=== PATIENT | female | born 1990 | race African-American/Black ===

== ENCOUNTER 2016-06-11 18:06 | Emergency (ER) | payer SELFPAY ==
[~2016-06-11] VITALS: Ht 170.2 cm; Wt 70.0 kg
[~2016-06-11 18:06] MED LIST: BACT800T5 PO; CEPH500C3 PO
[2016-06-11 18:10] VITALS: BP 131/82; PULSE 88; RESP 16; TEMP 98.2; O2SAT 96
--- NOTE | 2016-06-11 20:47 | PD ---
HPI Chief Complaint: Headache Time Seen by Provider: 20:38 Travel History International Travel<30 days: No Contact w/Intl Traveler<30days: No Traveled to known affect area: No History of Present Illness HPI This is a 25-year-old female who presents for evaluation of multiple complaints. She reports over the past several months she's been having intermittent lower back pain. Pain is a sharp pain that seems to be worse with certain movements. Over the past week she has been having occasional headaches , mild, as well as a sore throat over the past few days. She does endorse a cough as well. Denies fevers or chills, dysuria, flank pain, abdominal pain, nausea or vomiting, bowel or bladder incontinence, saddle anesthesia, numbness or tingling or weakness in the extremities. She denies any trauma. She notes that she works at a [employer] center, has to sit for most of the day. She has been using bucj-[id number] medications for symptom relief. She has no other complaints. History Past Medical Histgory LMP: 05/13/16 Social History Alcohol Use: No Tobacco Use: No Allergies-Medications (Allergen,Severity, Reaction): Coded Allergies: No Known Allergies (Verified , 07/15/14) Reported Meds & Prescriptions Reported Meds & Active Scripts Active Keflex (Cephalexin Monohydrate) 500 Mg Cap 500 Mg PO QID 10 Days Bactrim DS (Sulfamethoxazole-Trimethoprim DS) 1 Tab Tab 1 Tab PO BID 10 Days Review of Systems Except as stated in HPI: all other systems reviewed are Neg Physical Exam Narrative GENERAL: Well-developed well-nourished female in no acute distress SKIN: Warm and dry. HEAD: Atraumatic. Normocephalic. EYES: Pupils equal and round. No scleral icterus. No injection or drainage. ENT: No nasal bleeding or discharge. Mucous membranes pink and moist. No oral pharyngeal erythema or exudate. NECK: Trachea midline. No JVD. No lymphadenopathy. CARDIOVASCULAR: Regular rate and rhythm. No murmur appreciated. RESPIRATORY: No accessory muscle use. Clear to auscultation. Breath sounds equal bilaterally. GASTROINTESTINAL: Abdomen soft, non-tender, nondistended. MUSCULOSKELETAL: No obvious deformities. No CVA tenderness. No tenderness to palpation along the thoracic or lumbar midline spine. Full spontaneous range of motion of the upper and lower extremities, neck, no apparent discomfort when going from lying down to sitting. NEUROLOGICAL: Awake and alert. No obvious cranial nerve deficits. Motor grossly within normal limits. Normal speech. PSYCHIATRIC: Appropriate mood and affect; insight and judgment normal. Data Data Last Documented VS Vital Signs Date Time Temp Pulse Resp B/P Pulse Ox O2 Delivery O2 Flow Rate FiO2 06/11/16 18:10 98.2 88 16 131/82 96 Room Air MDM Medical Screen Exam Complete: Yes Emergency Medical Condition: No Narrative Course This is a 25-year-old female has been having intermittent lower back pain for several months, occasional mild headaches for the past week as well as a sore throat. Physical examination is entirely benign. I suspect the patient has a viral pharyngitis, benign mechanical lower back pain. This patient is exhibiting no evidence of an emergent medical condition and she could follow up safely as an outpatient. A medical screening exam was performed: At the time of evaluation the presenting medical condition was determined not to be of an emergent nature. The patient was given the option of receiving additional care, but declined. Patient was given options for additional community resources from which to obtain care. The Patient Has Been advised to seek medical attention for their presenting complaint. The patient has been advised to return to the ER at any time if an emergent condition develops. Primary Impression: Encounter for medical screening examination Med/Other Pt SpecificInfo: No Change to Meds Disposition: 01 DISCHARGE HOME Condition: Stable Ronn Ng Jun 11, 2016 20:47
== END 2016-06-11 20:55 | disposition left against medical advice (07) ==
LOC: NEPB 18:06
DX: M54.5 Low back pain (principal); R51 Headache; J02.9 Acute pharyngitis, unspecified
CPT/HCPCS: 99281

== ENCOUNTER 2016-12-31 18:59 | Emergency (ER) | payer MEDICAID ==
[2016-12-31 19:00] VITALS: BP 137/80; PULSE 72; RESP 20; TEMP 98.6; O2SAT 99
--- NOTE | 2016-12-31 19:27 | PD ---
Physical Exam Date Seen by Provider: Dec 31, 2016 Time Seen by Provider: 19:26 Narrative 26 yo female here for evaluation of pelvic pain with discharge. Going on for a few days. No chest pain. Vaginal discharge and pelvic pain x 3 days. Vitals are stable in triage. Awaiting Bed placement. Data Data Last Documented VS Vital Signs Date Time Temp Pulse Resp B/P Pulse Ox O2 Delivery O2 Flow Rate FiO2 12/31/16 19:00 98.6 72 20 137/80 99 Room Air [facility] Medical Record Reviewed: Yes Supervised Visit with BARB: No Scripts No Active Prescriptions or Reported Meds Ricki Ayala Dec 31, 2016 19:27
--- NOTE | 2016-12-31 19:58 | PD ---
HPI Chief Complaint: Back Panel Padder Problem/Complaint Time Seen by Provider: 19:55 Travel History International Travel<30 days: No Contact w/Intl Traveler<30days: No Traveled to known affect area: No History of Present Illness HPI Patient comes in complaining of vaginal pain around her clitoris and white discharge that began 3 days ago after having intercourse. Patient reports she is sexually active with one partner and uses protection. Denies partner having any similar symptoms. Patient states that this happens to her any time after not having sex for a while and then having sex but usually lasts for about a day. Patient denies any abdominal pain, back pain, fevers, , chest pain, shortness breath, or radiation of the pain. Pain is worse with walking and sitting in certain positions. Denies anything making it better but tried using [id number] Vagisil with no improvement of her symptoms. Patient reports associated dysuria. PFSH Past Medical History Medical History: Denies Significant Hx ?: Not LMP: 12/20/16 : 1 Para: 1 Past Surgical History Surgical History: No Previous Surgery Social History Alcohol Use: No Tobacco Use: No Substance Use: No Allergies-Medications (Allergen,Severity, Reaction): Coded Allergies: No Known Allergies (Verified , 12/31/16) Reported Meds & Prescriptions Reported Meds & Active Scripts Active No Active Prescriptions or Reported Medications Review of Systems Except as stated in HPI: all other systems reviewed are Neg Physical Exam Narrative GENERAL: Well-developed, well nourished, in no acute distress, and non-ill appearing. SKIN: Focused skin assessment warm and dry. HEAD: Atraumatic. Normocephalic. EYES: Pupils equal and round. EOMI. No scleral icterus. No injection or drainage. ENT: No nasal bleeding or discharge. Mucous membranes pink and moist. NECK: Trachea midline. Supple. No nuclear rigidity. CARDIOVASCULAR: Regular rate and rhythm. No murmur appreciated. RESPIRATORY: No accessory muscle use. No respiratory distress. Clear to auscultation. Breath sounds equal bilaterally. No CVA tenderness. GASTROINTESTINAL: Abdomen soft, non-tender, nondistended, and no guarding. Hepatic and splenic margins not palpable. Normal bowel sounds 4. No pulsatile mass. GENITOURINARY: Normal external genitalia without lesions or erythema. Vaginal vault without blood, but scant amount of mucousy yellow drainage. Cervical os was closed with mucousy yellow drainage. No cervical motion tenderness. Uterus nontender and nonenlarged. Bilateral adnexa nontender without masses. MUSCULOSKELETAL: No obvious deformities. No clubbing. No cyanosis. No edema. Full range of motion. NEUROLOGICAL: Awake and alert. No obvious cranial nerve deficits. Motor grossly within normal limits. Normal speech. PSYCHIATRIC: Appropriate mood and affect; insight and judgment normal. Data Data Last Documented VS Vital Signs Date Time Temp Pulse Resp B/P Pulse Ox O2 Delivery O2 Flow Rate FiO2 12/31/16 19:00 98.6 72 20 137/80 99 Room Air Orders Gc And Chlamydia Pcr (12/31/16 19:53) Wet Prep Profile (12/31/16 19:53) Urinalysis - C+S If Indicated (12/31/16 19:53) Ed Urine Pregnancytest Poc (12/31/16 19:53) Ceftriaxone Inj (Rocephin Inj) (12/31/16 20:45) Lidocaine Pf 1% Inj (Xylocaine-Mpf 1% In (12/31/16 20:45) Azithromycin Powd Pack (Zithromax Powd P (12/31/16 20:45) Labs Laboratory Tests Test 12/31/16 12/31/16 20:10 20:15 Urine Color LIGHT-YELLOW Urine Turbidity CLEAR Urine pH 6.5 Urine Specific [place] 1.003 Urine Protein NEG mg/dL Urine Glucose (UA) NEG mg/dL Urine Ketones NEG mg/dL Urine Occult Blood TRACE Urine Nitrite NEG Urine Bilirubin NEG Urine Urobilinogen LESS THAN 2.0 MG/DL Urine Leukocyte Esterase LARGE Urine RBC 1 /hpf Urine WBC 7 /hpf Urine Squamous Epithelial <1 /hpf Cells Microscopic Urinalysis Comment CULT NOT INDICATED Clue Cells (Wet Prep) NONE SEEN Vaginal Trichomonas (Wet Prep) NONE SEEN Vaginal Yeast (Wet Prep) NONE SEEN MDM Medical Decision Making Medical Screen Exam Complete: Yes Emergency Medical Condition: Yes Differential Diagnosis Gonorrhea, chlamydia, UTI, Trichomonas, yeast, bacterial vaginosis, other Narrative Course Patient in no obvious distress upon re-evaluation. All pertinent laboratory result(s) discussed with patient with exception coronary chlamydia are currently pending. Any questions/concerns in reference to patient diagnosis/ condition discussed and clarified prior to patient's discharge. Reinforced sheer importance of close follow up with patient's primary physician or primary care clinic and/or health Department. Instructed patient to return to ED immediately, if symptoms return/worsen. Pt showed understanding of above instructions. Further instructions and recommendations were detailed in discharge paperwork. Pt ambulated without difficulty out of ED at discharge. Diagnosis Primary Impression: Vaginal discharge Additional Impression: Possible exposure to STD Referrals: [facility] Dept. Patient Instructions: General Instructions, Sexually Transmitted Diseases (ED) , Vaginal Discharge (ED) Additional Instructions: Follow-up with your primary care physician and/or health Department for additional STD testing. Notify all sexual partners have them tested and treated. Do not have intercourse until all sexual partners tested and treated. Practice safe sex to prevent further STDs and/or unwanted pregnancies. If you would like a copy of your gonorrhea and chlamydia results bring a photo ID to medical records in 24-48 hours to get a copy. Return to the emergency department if symptoms get worse. Scripts No Active Prescriptions or Reported Meds Disposition: 01 DISCHARGE HOME Condition: Stable Corby Moe Dec 31, 2016 19:58
[2016-12-31 20:32] LABS: BLOOD, URINE TRACE (NEG); COMMENT (UR) CULT NOT INDICATED; CULTURE IF INDICATED CULT NOT INDICATED; GLUCOSE,URINE NEG (NEG); KETONE, URINE NEG (NEG); NITRITE,URINE NEG (NEG); PH, URINE 6.5 (5.0-8.5); SQUAMOUS EPITHELIAL CELL URINE <1 /hpf (0-5); URINE COLOR LIGHT-YELLOW (YELLW/STRAW)
[2016-12-31] MEDS ORDERED: AZITHROMYCIN PWD FOR SUSP 1 GM PACKET PO ONE (20:45)
[2016-12-31] MEDS ORDERED: LIDOCAINE HCL 1% PF 30 ML VIAL XX ONE (20:45)
[2016-12-31 22:05] LABS: CHLAMYDIA PCR DETECTED (NOT DETECT); NEISSERIA PCR NOT DETECTED (NOT DETECT)
== END 2016-12-31 21:22 | disposition home or self-care (01) ==
LOC: NEPC 18:59
DX: N89.8 Other specified noninflammatory disorders of vagina (principal)
CPT/HCPCS: 81001; 84703; 87210; 87491; 87591; 96372; 99284; J0696

== ENCOUNTER → 2017-06-30 | Outpatient (CLI) | payer MEDICAID ==
[~2017-06-30] MED LIST changes: -BACT800T5 PO; -CEPH500C3 PO; +PRENMIS9 PO
== END ==
LOC: HPND 14:17
PROVIDERS: ATTEND Family Medicine
DX: Z34.90 Encounter for supervision of normal pregnancy, unspecified, unspecified trimester (principal)
CPT/HCPCS: 76801

== ENCOUNTER 2017-07-20 18:11 | Emergency (ER) | payer MEDICAID ==
[2017-07-20 18:16] VITALS: BP 147/73; PULSE 100; RESP 18; TEMP 99.2; O2SAT 99
[2017-07-20] MEDS ORDERED: AUGM875T3 PO (21:35)
== END 2017-07-20 19:50 | disposition left against medical advice (07) ==
LOC: NEPK 18:11
DX: R05 Cough (principal)
CPT/HCPCS: 87081; 87804; 87880; 99283

== ENCOUNTER 2017-07-20 21:05 | Emergency (ER) | payer MEDICAID ==
[2017-07-20 21:07] VITALS: BP 171/90; PULSE 120; RESP 18; TEMP 98.9; O2SAT 100
[2017-07-20] MEDS ORDERED: AMOXICILLIN/CLAVULANATE K 875 MG TAB PO ONE (21:30)
[2017-07-20 21:31] VITALS: PULSE 84
[2017-07-20] MEDS ORDERED: AUGM875T3 PO (21:35)
--- NOTE | 2017-07-20 21:35 | PD ---
HPI Chief Complaint: ENT Complaint Time Seen by Provider: 21:24 Travel History International Travel<30 days: No Contact w/Intl Traveler<30days: No Traveled to known affect area: No History of Present Illness HPI 26-year-old female approximately 12 weeks here for evaluation of sore throat. The patient reports sore throat and cough for the last 2 weeks. She reports that she has had an ultrasound that confirmed an IUP here with a [facility]. She denies vaginal bleeding or discharge. No abdominal pain. States that her throat hurt so much that it is hard for her to swallow. No fevers or chills. Cough is nonproductive. PFSH Past Medical History ?: : 1 Para: 1 Social History Alcohol Use: No Tobacco Use: No Substance Use: No Allergies-Medications (Allergen,Severity, Reaction): Coded Allergies: No Known Allergies (Verified Adverse Reaction, Unknown, 06/10/17) Reported Meds & Prescriptions Reported Meds & Active Scripts Active Bal-Care Dha Essential Pack ( Cas366/Iron/Folic/Om3) 27 Mg Iron-1 Mg- 374 Mg Cmbpkgdrcp 1 Tab PO DAILY Review of Systems Except as stated in HPI: all other systems reviewed are Neg Physical Exam Narrative GENERAL: Well-developed, well-nourished, comfortable, no apparent distress. SKIN: Focused skin assessment warm/dry. No rash. HEAD: Atraumatic. Normocephalic. EYES: Pupils equal and round. No scleral icterus. No injection or drainage. ENT: No nasal bleeding or discharge. Mucous membranes pink and moist. Pharynx with mild erythema, uvula absent, no asymmetry, normal phonation, no drooling or stridor. No trismus. Bilateral tympanic membranes and external auditory canals are normal. NECK: Trachea midline. No JVD. No nuchal rigidity. CARDIOVASCULAR: Regular rate and rhythm. No murmur appreciated. RESPIRATORY: No accessory muscle use. Clear to auscultation. Breath sounds equal bilaterally. GASTROINTESTINAL: Abdomen soft, non-tender, nondistended. MUSCULOSKELETAL: No obvious deformities. No clubbing. No cyanosis. No edema. NEUROLOGICAL: Awake and alert. No obvious cranial nerve deficits. Motor grossly within normal limits. Normal speech. PSYCHIATRIC: Appropriate mood and affect; insight and judgment normal. Data Data Last Documented VS Vital Signs Date Time Temp Pulse Resp B/P (MAP) Pulse Ox O2 Delivery O2 Flow Rate FiO2 07/20/17 21:31 84 07/20/17 21:07 98.9 18 171/90 (117) 100 Orders Orders Amoxicil-Clavulanate (Augmentin) (07/20/17 21:30) MDM Medical Decision Making Medical Screen Exam Complete: Yes Emergency Medical Condition: Yes Differential Diagnosis Pharyngitis, influenza, URI, pneumonia, viral illness Narrative Course Influenza and group A strep are negative. Heart rate in triage was 120. It was repeated in the room and is 84. The patient is overall very well-appearing. Pharynx with mild erythema without exudates. No asymmetry. No drooling or stridor. Plan is to start the patient on Augmentin and have her follow-up with her HEALTH SAFETY ENGINEER physician this week. She was advised to stay hydrated with plenty of fluids and informed on when to return to the emergency department. She verbalizes understanding and agreement with plan. Diagnosis Primary Impression: Pharyngitis Qualified Codes: J02.9 - Acute pharyngitis, unspecified Referrals: Welding Inspector 3 days Primary Care Physician 3 days Additional Instructions: Follow-up with your primary care physician or gypsum block setter this week. Stay hydrated with plenty of fluids. Return to the emergency department for worsening symptoms or any other concerns. Scripts Amoxicillin-Clavulanate (Augmentin) 875-125 Mg Tab 1 TAB PO BID for Infection for 7 Days, #14 TAB 0 Refills Prov: Rickey Ellis MD 07/20/17 Disposition: 01 DISCHARGE HOME Condition: Stable Rickey Ellis MD Jul 20, 2017 21:35
== END 2017-07-20 21:53 | disposition home or self-care (01) ==
LOC: NEPD 21:05
DX: O99.511 Diseases of the respiratory system complicating pregnancy, first trimester (principal); J02.9 Acute pharyngitis, unspecified; Z3A.12 12 weeks gestation of pregnancy
CPT/HCPCS: 99283

== ENCOUNTER → 2017-07-29 | Outpatient (CLI) | payer MEDICAID ==
[~2017-07-29] MED LIST changes: +AUGM875T3 PO
== END ==
LOC: HPND 08:58
PROVIDERS: ATTEND Family Medicine
DX: O26.841 Uterine size-date discrepancy, first trimester (principal); Z36.3 Encounter for antenatal screening for malformations
CPT/HCPCS: 36415; 76813

== ENCOUNTER 2017-08-28 16:46 | Emergency (ER) | payer MEDICAID ==
[~2017-08-28] VITALS: Ht 170.2 cm; Wt 75.7 kg
[2017-08-28 17:06] VITALS: TEMP 98.8
[2017-08-28 17:07] VITALS: BP 109/60; PULSE 98
--- NOTE | 2017-08-28 17:15 | PD ---
HPI Chief Complaint headache, vomiting, diarrhea Date Seen: Aug 28, 2017 Time Seen: 16:57 (Rebekah Can MD R2) Travel History International Travel<30 Days: No Contact w/Intl Traveler<30Days: No (Rebekah Can MD R2) History of Present Illness HPI Patient is a 26 year old at 17 and 5/7 weeks gestation by first trimester US, SHIMA 01/30/2018, who presents to the OB ED with nonspecific symptoms of vomiting, diarrhea, and headache. She reports a temporal temperature at home of 102F this morning. She denies leakage of fluid, vaginal bleeding, and contractions. She feels baby moving. She denies current nausea and vomiting but feels like her appetite is poor. No sick contacts/SOB/calf pain/dizziness/ seeing spots. OB care is with Dr. Shaye Almanzar. EMR review is notable for empiric Augmentin script given in June 2017 in [place] ED for pharyngitis (not strep positive). (Rebekah Can MD R2) History Past Medical History Medical History: Denies Significant Hx (Rebekah Can MD R2) Obstetric History Obstetric History G1: 6 YR OLD G2: first trimester loss G3: current, reportedly only complicated by HPV noted on Pap (Rebekah Can MD R2) Past Surgical History Surgical History: No Previous Surgery (Rebekah Can MD R2) Family History Family History: Negative (Rebekah Can MD R2) Social History Alcohol Use: No Tobacco Use: No Substance Abuse: No (Rebekah Can MD R2) Allergies-Medications (Allergen,Severity, Reaction): Coded Allergies: No Known Allergies (Verified Allergy, Unknown, 08/28/17) Home Meds Active Scripts Plu051/Iron/Folic/Om3 (Bal-Care Dha Essential Pack) 27 Mg Iron-1 Mg- 374 Mg Cmbpkgdrcp, 1 TAB PO DAILY, #30 TAB 11 Refills Prov:Shaye Almanzar MD R2 06/12/17 Discontinued Scripts Amoxicillin-Clavulanate (Augmentin) 875-125 Mg Tab, 1 TAB PO BID for Infection for 7 Days, #14 TAB 0 Refills Prov:Rickey Ellis MD 07/20/17 Physical Exam Narrative GENERAL: Well-nourished, well-developed patient. SKIN: Warm and dry. HEAD: Normocephalic and atraumatic. EYES: No scleral icterus. No injection or drainage. ENT: No nasal drainage noted. Mucous membranes pink. Airway patent. NECK: Supple, trachea midline. No JVD. CARDIOVASCULAR: Regular rate and rhythm without murmurs, gallops, or rubs. RESPIRATORY: Breath sounds equal bilaterally. No accessory muscle use. ABDOMEN/GI: Abdomen soft, non-tender, bowel sounds present, no rebound, no guarding. No palpated ctx. GENITOURINARY: deferred External Genitalia: intact and normal in appearance Uterine Contractions: absent FHT's: Category: FHR 160s EXTREMITIES: No cyanosis or edema. BACK: Nontender without obvious deformity. No CVA tenderness. NEUROLOGICAL: Awake and alert. Motor and sensory grossly within normal limits. Five out of 5 muscle strength in all muscle groups. Normal speech. (Rebekah Can MD R2) Data Data Vital Signs Reviewed: Yes (wnl, afebrile) Orders Orders Vital Signs (Adult) .ON ADMISSION (08/28/17 16:55) ^ Labor Status (08/28/17 16:55) Heart (08/28/17 16:55) Urinalysis - C+S If Indicated (08/28/17 16:55) ^ Non Stress Test (08/28/17 16:55) ^ Hydration (08/28/17 16:55) (Rebekah Can MD R2) MDM Narrative Course / MDM 26 year old at 17 and 5/7 weeks gestation by first trimester US, SHIMA 01/30, who presents with nonspecific GI symptoms and possible dehydration. Suspect dehydration and viral gastroenteritis. Afebrile with normal BP. Intrauterine -FHR noted with Doppler 160s -No CTX -OB care with Dr. Almanzar -U/A pending -IV fluids due to low PO intake -Routine care Dehydration -IVF bolus LR -Monitor symptoms -Encourage PO hydration and electrolyte-rich fluids as outpt -No nausea, has diarrhea Discharge to home with close f/u with Dr. Shaye Almanzar Seen and discuss with Dr. Phoenix Plan Likely discharge to home (Rebekah Can MD R2) Attending Attestation Patient seen and evaluated with resident under direct supervision, agree with assessment and plan. (Casper Phoenix MD) Diagnosis Diagnosis: Primary Impression: Patient currently Additional Impression: Dehydration Disposition: 01 DISCHARGE HOME Condition: Stable Patient Instructions: Abdominal Pain in (ED), General Instructions, Nausea and Vomiting in (ED) Rebekah Can MD R2 Aug 28, 2017 17:15 Casper Phoenix MD Aug 28, 2017 21:43
[2017-08-28] MEDS ORDERED: LACTATED RINGER'S 1000 ML INJ 1,000 ML IV ONE (17:45)
[2017-08-28] MEDS ORDERED: ACETAMINOPHEN 325 MG TAB PO ONE (18:00)
[2017-08-28 18:09] LABS: BILIRUBIN, URINE NEG (NEG); BLOOD, URINE NEG (NEG); GLUCOSE,URINE NEG (NEG); KETONE, URINE NEG (NEG); MUCUS URINE FEW /lpf (OCC); NITRITE,URINE NEG (NEG); PH, URINE 6.5 (5.0-8.5); SQUAMOUS EPITHELIAL CELL URINE 1 /hpf (0-5); URINE COLOR YELLOW (YELLW/STRAW); URINE LEUKOCYTE ESTERASE SMALL (NEG)
== END 2017-08-28 18:44 | disposition home or self-care (01) ==
LOC: HOBED 16:46
DX: O21.9 Vomiting of pregnancy, unspecified (principal); E86.0 Dehydration; O26.892 Other specified pregnancy related conditions, second trimester; R19.7 Diarrhea, unspecified; R51 Headache; Z3A.17 17 weeks gestation of pregnancy
CPT/HCPCS: 81001; 96360; 99284; J7120

== ENCOUNTER → 2017-09-08 | Outpatient (CLI) | payer MEDICAID ==
[~2017-09-08] MED LIST changes: -AUGM875T3 PO
== END ==
LOC: HPND 15:16
PROVIDERS: ATTEND Family Medicine
DX: O99.322 Drug use complicating pregnancy, second trimester (principal); O26.842 Uterine size-date discrepancy, second trimester; Z36.3 Encounter for antenatal screening for malformations
CPT/HCPCS: 76805

== ENCOUNTER → 2017-10-07 | Outpatient (CLI) | payer MEDICAID | LOC: HPND 12:53 | PROVIDERS: ATTEND Family Medicine | DX: O99.322 Drug use complicating pregnancy, second trimester (principal); Z36.3 Encounter for antenatal screening for malformations | CPT/HCPCS: 76816; 76825; 76827; 93325 ==

== ENCOUNTER 2018-02-02 01:23 | Inpatient (IN) ==
--- NOTE | 2018-02-02 02:09 | ED ---
History of Present Illness Primary Care Physician: NOT REQUIRED Chief Complaint: Contractions History of Present Illness: Patient is a 27-year-old at 40/2 weeks gestation that presents to the [facility] ED with chief complaints of worsened uterine contractions. She was last seen on the previous day in the ED for vaginal pressure and contractions and was found to not be an active labor. At that time contractions were 7-8 minutes apart, but now have worsened, are very painful, and are occurring more frequently about 2-4 minutes. She denies gush or leakage of fluid, vaginal bleeding, and has been feeling her baby move. Patient also denies headache, blurry vision, chest pain, shortness of breath, nausea/vomiting/diarrhea, worsening pedal edema, rashes. She has no other complaints or concerns today. Other review of systems is negative. Notably, she is GBS negative. She gets her care at the [facility], initially with Dr. Almanzar but had transitioned to Dr. Valerio. Her last clinic visit was on 01/26/[address] Almanzar when she was 39/2 weeks . At that time, her vaginal exam was 0/20/-3. All her labs have been within normal, except for her glucose tolerance screen but her A1c was normal. history: -First , full-term at 40 weeks, vaginal delivery on 01/05/12 at [facility] -Second , elective at 6 weeks, 04/2015 -Third , spontaneous at 6-7 weeks, 03/2017 Weeks Gestation:: 40 Para: 1 : 4 Total # of Miscarriage(s): 1 Total # of Abortions (Spontaneous & Elective): 1 - Inpatient Certification Estimated Total Length of Stay (Days): 3 Plans for Post Hospital Care: Home Review of Systems All other systems reviewed negative except as stated [facility] Medical History Medical History: Medical History (Last Updated 02/01/18 @ 21:42 by Shaye Almanzar MD, R3) Anemia complicating (Acute) - Surgical History Surgical History: Surgical History (Last Updated 02/01/18 @ 21:16 by Shaye Almanzar MD, R3) No history of previous surgery - Family History Family History: Family History (Last Updated 02/02/18 @ 02:37 by Shaye Almanzar MD, R3) Mother Family history of diabetes mellitus - Tobacco History Second Hand Smoke Exposure: No Smoking Status: Never smoker - Alcohol History How Often Do You Have a Drink Containing Alcohol: Never - Substance Use History Substance History: No History of Abuse - Travel History History of Recent Travel: No Medications and Allergies Allergies Allergy/AdvReac Type Severity Reaction Status Date / Time No Known Allergies Allergy Verified 02/02/18 02:39 Home Medications Medication Instructions Recorded Confirmed Type ferrous sulfate [Iron (ferrous 325 mg PO DAILY 02/01/18 02/01/18 History sulfate)] Exam Vital signs: Vital Signs 02/02/18 01:47 Temperature 98.2 F Pulse Rate 90 Blood Pressure 146/66 H Narrative: GENERAL: Well-nourished, well-developed patient. No acute distress. SKIN: Warm and dry. No rash. EYES: No scleral icterus. No injection or drainage. PERRLA. EOMI. HENT: Normocephalic. Atraumatic. MMM. NECK: No visible JVD or lymphadenopathy. CARDIOVASCULAR: Warm and well perfused. RRR, systolic flow murmur present RESPIRATORY: Normal respiratory effort. CTAB GASTROINTESTINAL: Abdomen nondistended. Gravid MUSCULOSKELETAL: Strength grossly WNL. BACK: Without obvious deformity. NEURO/PSYCH: Afocal. Awake, alert, and oriented x3. ABDOMEN/GI: Abdomen soft, non-tender, bowel sounds present, no rebound, no guarding Gravid to 40 weeks size GENITOURINARY: External Genitalia: intact and normal in appearance Cervix: posterior Dilatation: 3cm Effacement: 50% Station: -2 Presentation: vertex Membranes: intact Uterine Contractions: q2-4mins on tocometer, somewhat irregular FHT's: Category: 1 Baseline: 140 Reactive: yes Variability: moderate Decels: none EXTREMITIES: No cyanosis or edema. BACK: Nontender without obvious deformity. NEUROLOGICAL: Awake and alert. Motor and sensory grossly within normal limits. Normal speech. Results - Labs CBC & Chem 7: 02/02/18 02:05 Group B Strep: Negative Assessment and Plan - Diagnosis (1) Uterine contractions during Code(s): O62.2 - Other uterine inertia Status: Acute (2) 40 weeks gestation of Code(s): Z3A.40 - 40 weeks gestation of Status: Acute - Plan 27-year-old at 40/2 weeks gestation presents in active labor. GBS negative. IUP - heart tones category 1 reassuring -Vaginal exam: 3/50%/-2 -Contractions occurring every 2-4 minutes, somewhat irregular -Admit to L&D -Continue routine care -Augment with Pitocin as needed -Patient desires an epidural -Not ruptured-plan for AROM -Expect a vaginal delivery Discussed with OB attending Discharge Plan - Physicians Team Primary Care Provider: NOT REQUIRED, Attending Provider: Fly Pisano - Rxs /Orders / Referrals /Forms Prescriptions: No Action ferrous sulfate [Iron (ferrous sulfate)] 325 mg (65 mg iron) Tablet 325 mg PO DAILY
[2018-02-02] MEDS ORDERED: fentaNYL Citrate Inj 100 MCG/2 ML Ampul IV.PUSH PRN ×2 (02:10)
[2018-02-02] MEDS ORDERED: Sodium Chlor 0.9% Inj 500 ML IV.SIG PRN (02:10)
[2018-02-02] MEDS ORDERED: Naloxone Inj 0.4 MG/ML Vial IV.PUSH PRN ×2 (02:10→09:24)
[2018-02-02] MEDS ORDERED: Oxytocin 30 Units/500ml Premix 30 UNITS/500 ML BAG IV.SIG ONE (02:10)
[2018-02-02] MEDS ORDERED: Sod Chloride 0.9% Inj 1,000 ML IV.CONT PRN (02:10)
--- NOTE | 2018-02-02 02:13 | P.HPOB ---
History of Present Illness Primary Care Physician: NOT REQUIRED Chief Complaint: Contractions History of Present Illness: Patient is a 27-year-old at 40/2 weeks gestation that presents to the [facility] ED with chief complaints of worsened uterine contractions. She was last seen on the previous day in the ED for vaginal pressure and contractions and was found to not be an active labor. At that time contractions were 7-8 minutes apart, but now have worsened, are very painful, and are occurring more frequently about 2-4 minutes. She denies gush or leakage of fluid, vaginal bleeding, and has been feeling her baby move. Patient also denies headache, blurry vision, chest pain, shortness of breath, nausea/vomiting/diarrhea, worsening pedal edema, rashes. She has no other complaints or concerns today. Other review of systems is negative. Notably, she is GBS negative. She gets her care at the [facility], initially with Dr. Almanzar but had transitioned to Dr. Valerio. Her last clinic visit was on 01/26/[address] Almanzar when she was 39/2 weeks . At that time, her vaginal exam was 0/20/-3. All her labs have been within normal, except for her glucose tolerance screen but her A1c was normal. history: -First , full-term at 40 weeks, vaginal delivery on 01/05/12 at [facility] -Second , elective at 6 weeks, 04/2015 -Third , spontaneous at 6-7 weeks, 03/2017 Weeks Gestation:: 40 Para: 1 : 4 Total # of Miscarriage(s): 1 Total # of Abortions (Spontaneous & Elective): 1 - Inpatient Certification Estimated Total Length of Stay (Days): 3 Plans for Post Hospital Care: Home Review of Systems All other systems reviewed negative except as stated [facility] - Medical History Medical History: Medical History (Last Updated 02/01/18 @ 21:42 by Shaye Almanzar MD, R3) Anemia complicating (Acute) - Surgical History Surgical History: Surgical History (Last Updated 02/01/18 @ 21:16 by Shaye Almanzar MD, R3) No history of previous surgery - Family History Family History: Family History (Last Updated 02/02/18 @ 02:37 by Shaye Almanzar MD, R3) Mother Family history of diabetes mellitus - Tobacco History Second Hand Smoke Exposure: No Smoking Status: Never smoker - Alcohol History How Often Do You Have a Drink Containing Alcohol: Never - Substance Use History Substance History: No History of Abuse - Travel History History of Recent Travel: No Medications and Allergies Allergies Allergy/AdvReac Type Severity Reaction Status Date / Time No Known Allergies Allergy Verified 02/02/18 02:39 Home Medications Medication Instructions Recorded Confirmed Type ferrous sulfate [Iron (ferrous 325 mg PO DAILY 02/01/18 02/01/18 History sulfate)] Exam Vital signs: Vital Signs 02/02/18 01:47 Temperature 98.2 F Pulse Rate 90 Blood Pressure 146/66 H Narrative: GENERAL: Well-nourished, well-developed patient. No acute distress. SKIN: Warm and dry. No rash. EYES: No scleral icterus. No injection or drainage. PERRLA. EOMI. HENT: Normocephalic. Atraumatic. MMM. NECK: No visible JVD or lymphadenopathy. CARDIOVASCULAR: Warm and well perfused. RRR, systolic flow murmur present RESPIRATORY: Normal respiratory effort. CTAB GASTROINTESTINAL: Abdomen nondistended. Gravid MUSCULOSKELETAL: Strength grossly WNL. BACK: Without obvious deformity. NEURO/PSYCH: Afocal. Awake, alert, and oriented x3. ABDOMEN/GI: Abdomen soft, non-tender, bowel sounds present, no rebound, no guarding Gravid to 40 weeks size GENITOURINARY: External Genitalia: intact and normal in appearance Cervix: posterior Dilatation: 3cm Effacement: 50% Station: -2 Presentation: vertex Membranes: intact Uterine Contractions: q2-4mins on tocometer, somewhat irregular FHT's: Category: 1 Baseline: 140 Reactive: yes Variability: moderate Decels: none EXTREMITIES: No cyanosis or edema. BACK: Nontender without obvious deformity. NEUROLOGICAL: Awake and alert. Motor and sensory grossly within normal limits. Normal speech. Results - Labs CBC & Chem 7: 02/02/18 02:05 Group B Strep: Negative Assessment and Plan - Diagnosis (1) Uterine contractions during Code(s): O62.2 - Other uterine inertia Status: Acute (2) 40 weeks gestation of Code(s): Z3A.40 - 40 weeks gestation of Status: Acute - Plan 27-year-old at 40/2 weeks gestation presents in active labor. GBS negative. IUP - heart tones category 1 reassuring -Vaginal exam: 3/50%/-2 -Contractions occurring every 2-4 minutes, somewhat irregular -Admit to L&D -Continue routine care -Augment with Pitocin as needed -Patient desires an epidural -Not ruptured-plan for AROM -Expect a vaginal delivery Discussed with OB attending
[2018-02-02] MEDS ORDERED: Citric Acid/Sodium Citrate Liq 30 ML UDC PO SCH (02:15)
[2018-02-02 02:33] LABS: Baso % (Auto) 0.4 % (0.0-2.0); Eos # (Auto) 0.1 th/mm3 (0.0-0.4); Eos % (Auto) 0.9 % (0.0-4.0); Hematocrit 29.8 % (35.0-46.0); Hemoglobin 9.8 gm/dL (11.6-15.3); Lymph # (Auto) 1.6 th/mm3 (1.0-4.8); Lymph % (Auto) 17.9 % (9.0-44.0); Mean Corpuscular HGB Conc 32.9 % (32.0-36.0); Mean Corpuscular Hemoglobin 27.8 pg (27.0-34.0); Mean Corpuscular Volume 84.5 fL (80.0-100.0); Mean Platelet Volume 7.6 fL (7.0-11.0); Mono # (Auto) 0.8 th/mm3 (0.0-0.9); Mono % (Auto) 9.5 % (0.0-8.0); Neut # (Auto) 6.3 th/mm3 (1.8-7.7); Neut % (Auto) 71.3 % (16.0-70.0); Platelet Count 284 th/mm3 (150-450); Red Blood Count 3.53 mil/mm3 (4.00-5.30); White Blood Count 8.8 th/mm3 (4.0-11.0)
[2018-02-02] MEDS ORDERED: fentaNYL 2MCG-Bupiv 0.125% Epi 150 ML EPIDURAL ONE (02:53)
[2018-02-02] MEDS ORDERED: Lidocaine PF 1% Inj 5 ML Vial ONE (03:00)
[2018-02-02] MEDS ORDERED: Lidocaaine 1.5%/Epinephrine 1:200,000 PF Inj 5 ML Amp ONE (03:00)
[2018-02-02 03:21] LABS: Bilirubin,Urine Negative (Negative); Clarity,Urine Hazy (Clear); Color,Urine Yellow (Yellw/Straw); Glucose,Urine (UA) 150 mg/dL (Negative); Leukocyte Esterase,Urine Small (Negative); Mucus,Urine Few /lpf (Occasional); Nitrite,Urine Negative (Negative); Specific Gravity,Urine 1.025 (1.002-1.035); Squamous Epithelial Cell,Urine 3 /hpf (0-5); Urobilinogen,Urine 4 or Greater mg/dL (Less than 2)
[2018-02-02 03:23] LABS: Amphetamine Urine With Conf Neg (Neg); Benzodiazepine Urine With Conf Neg (Neg)
[2018-02-02] MEDS ORDERED: fentaNYL Citrate Inj 100 MCG/2 ML Ampul EPIDURAL ONE (03:47)
[2018-02-02] MEDS ORDERED: fentaNYL 2MCG-Bupiv 0.125% Epi 150 ML EPIDURAL PRN (03:47)
--- NOTE | 2018-02-02 06:25 | P.OBLABOR ---
Subjective Interval history: Patient is doing well. Has an epidural. Not feeling pain, but feels pressure. Objective Vital Signs: Vital Signs - 8 hr 02/02/18 01:47 02/02/18 03:06 02/02/18 03:12 Temperature 98.2 F Pulse Rate 90 84 89 Respiratory Rate 18 Blood Pressure 146/66 H 122/69 02/02/18 03:16 02/02/18 03:30 02/02/18 04:00 Temperature Pulse Rate 78 82 79 Respiratory Rate 18 Blood Pressure 127/58 L 107/83 117/56 L 02/02/18 04:30 02/02/18 04:44 02/02/18 04:45 Temperature 98.4 F Pulse Rate 79 66 Respiratory Rate 18 Blood Pressure 128/64 02/02/18 05:08 02/02/18 05:15 02/02/18 06:00 Temperature Pulse Rate 79 79 94 H Respiratory Rate 18 Blood Pressure 98/42 L 127/56 L 111/92 H Objective: Pelvic Exam: Cervix: Mid position Dilatation: 9cm Effacement: 100% Station: 0 Presentation: cephalic Membranes: [ruptured] Uterine Contractions: present FHT's: Category: I Baseline: 125 Reactive: yes Variability: moderate Decels: none to very infrequent variables Active Labor Start Date: 02/02/18 Artificial Rupture of Membrane: Yes Artificial ROM Date: 02/02/18 Assessment and Plan - Diagnosis (1) Uterine contractions during Code(s): O62.2 - Other uterine inertia Status: Acute (2) 40 weeks gestation of Code(s): Z3A.40 - 40 weeks gestation of Status: Acute - Plan 27-year-old at 40/2 weeks gestation presents in active labor. GBS negative. IUP - heart tones category 1 reassuring -Vaginal exam: 9/100%/0 -Contractions occurring every 2-4 minutes, somewhat irregular -No pitocin administered -Has epidural -AROM performed -little fluid return -Expect a vaginal delivery [facility] OB attending
--- NOTE | 2018-02-02 09:23 | P.OBDELI ---
Weeks Gestation: 40 Patient Started Active Labor: Yes Medical Induction of Labor: No Artificial Rupture of Membrane: Yes Artificial ROM Date: 02/02/18 Artificial ROM Time: 06:16 Anesthesia: Epidural Episiotomy: none Vaginal Delivery: Normal Presentation: Occiput anterior Nuchal Cord: None Delayed Cord Clamping (45 sec): Yes Placenta: Spontaneous delivery Laceration: None Estimated blood loss (mL): 100 Infant: Male (Apgars 8/9) Additional Information: Apgars 8/[address] Weller Supervised by Dr. Almanzar and Dr. Winter
[2018-02-02] MEDS ORDERED: Bisacodyl 10 MG Supp RECTAL PRN (09:24)
[2018-02-02] MEDS ORDERED: Benzocaine 20% Top Spray 60 ML Can TOPICAL PRN (09:24)
[2018-02-02] MEDS ORDERED: Witch Hazel 50%/Glyderin 12.5% 40 Pad Jar RECTAL PRN (09:24)
[2018-02-02] MEDS ORDERED: Oxytocin 30 Units/500ml Premix 30 UNITS/500 ML BAG IV.CONT PRN (09:24)
[2018-02-02] MEDS ORDERED: Diphtheria/Tetanus/Pertussis Vaccine Inj 0.5 ML Syringe IM ONE (16:00)
[2018-02-02] MEDS ORDERED: Measles/Mumps/Rubella Vaccine Inj 0.5 ML Vial SQ ONE (16:00)
[2018-02-02] MEDS: Acetaminophen 325 MG Tablet PO PRN (18:41)
[2018-02-02] MEDS ORDERED: Zolpidem Tartrate 5 MG Tablet PO PRN (21:00)
[2018-02-02] MEDS: Senna/Docusate Sodium 8.6/50 MG Tablet PO SCH (21:35)
--- NOTE | 2018-02-03 07:23 | P.PNOB ---
Subjective Post day: 1 Interval history: day #1. AFVSS overnight. Pain well controlled. Lochia like a period. No breast tenderness. feeding via breast. Gave some formula due to low milk production. Appetite good. No nausea or vomiting. Positive flatus. Negative bowel movement. Ambulating well. Denies calf pain, shortness of breath, or cough. Otherwise, she is doing well this morning and has no other complaints. Objective Vital Signs/I&O: Vital Signs 02/02/18 07:45 02/02/18 08:00 02/02/18 08:15 Temperature Pulse Rate 96 H Respiratory Rate 20 20 Blood Pressure 118/56 L 02/02/18 08:58 02/02/18 09:00 02/02/18 09:19 Temperature Pulse Rate 105 H 107 H 90 Respiratory Rate 20 20 Blood Pressure 146/86 H 146/89 H 136/67 02/02/18 09:33 02/02/18 09:50 02/02/18 10:01 Temperature 98.5 F Pulse Rate 120 H 88 101 H Respiratory Rate 20 20 Blood Pressure 96/38 L 116/64 139/81 02/02/18 10:30 02/02/18 11:35 02/02/18 16:00 Temperature 99.0 F 97.9 F Pulse Rate 82 74 62 Respiratory Rate 20 19 Blood Pressure 140/72 129/67 119/64 02/02/18 20:00 Temperature 98.2 F Pulse Rate 74 Respiratory Rate 18 Blood Pressure 142/66 H Intake & Output 02/02/18 02/03/18 02/03/18 18:59 06:59 18:59 Intake Total 500 / 500 Balance 500 / 500 Intake: IV 500 / 500 LR 1000 mL Inj 1,000 ML @ 125 0 / 0 mls/hr IV.CONT .Q8H EDWARD Rx#: [id number] Pitocin 30 Units/NS 500 ml 500 / 500 Premix 30 units In 500 ml @ 999 mls/hr IV.SIG BOLUS ONE Rx#: [id number] Result Diagrams: 02/02/18 02:05 Objective Remarks: GENERAL: Well-nourished, well-developed patient. CARDIOVASCULAR: Regular rate and rhythm without murmurs, gallops, or rubs. RESPIRATORY: Breath sounds equal bilaterally. No accessory muscle use. ABDOMEN/GI: Abdomen soft, non-tender. Fundus: Firm, non-tender below umbilicus. GENITOURINARY: Light to moderate bleeding. EXTREMITIES: No cyanosis or edema, non-tender, without signs of DVT. Medications and IVs: Active Medications Acetaminophen (Tylenol) 650 mg PO Q4H PRN PRN Reason: PAIN SCALE 1 TO 2 Last Admin: 02/02/18 18:41 Dose: 650 mg Al Hydroxide/Mg Hydroxide (Milk Of Magnesia Liq) 30 ml PO Q12H PRN PRN Reason: Mild Constipation Benzocaine (Americaine 20% Top Graham) 1 spray TOPICAL Q4H PRN PRN Reason: For Perineum Discomfort Bisacodyl (Dulcolax Supp) 10 mg RECTAL DAILY PRN PRN Reason: SEVERE CONSITIPATION Citric Acid/Sodium Citrate (Sodium Citrate/Citric Acid Liq) 30 ml PO SAP DIRECTOR [facility] Stop: 02/06/18 02:14 Fentanyl Citrate (Fentanyl Inj) 50 mcg IV.PUSH Q1H PRN PRN Reason: Pain Scale 3 - 5 Last Admin: 02/02/18 02:46 Dose: 50 mcg Fentanyl Citrate (Fentanyl Inj) 100 mcg IV.PUSH Q1H PRN PRN Reason: PAIN SCALE 6 TO 10 Lactated Ringer's (Lr 1000 Ml Inj) 1,000 mls @ 125 mls/hr IV.CONT .Q8H [facility] Last Admin: 02/03/18 03:16 Dose: Not Given Lactated Ringer's (Lr 1000 Ml Inj) 1,000 mls @ 3,000 mls/hr IV.SIG UNSCH PRN PRN Reason: compromise or epidural Sodium Chloride (Ns Inj) 500 mls @ 1,000 mls/hr IV.SIG UNSCH PRN PRN Reason: SEE LABEL COMMENTS Sodium Chloride (Ns Inj) 1,000 mls @ 100 mls/hr IV.CONT .Q10H PRN PRN Reason: SEE LABEL COMMENTS Fentanyl/Bupivacaine/Sodium Chlor (Fentanyl 2 Mcg-Bupiv 0.125% Epi) 150 mls @ 12 mls/hr EPIDURAL PRN PRN PRN Reason: for Labor Pain Oxytocin (Pitocin 30 Units/Ns 500 Ml Premix) 30 units in 500 mls @ 100 mls/hr IV.CONT UNSCH PRN PRN Reason: Heavy bleeding Ibuprofen (Motrin) 800 mg PO Q8H PRN PRN Reason: For Cramping Last Admin: 02/02/18 21:36 Dose: 800 mg Lactulose (Lactulose Liq) 30 ml PO DAILY PRN PRN Reason: SEVERE CONSITIPATION Lidocaine HCl (Xylocaine 1% Inj) 0.1 ml I-DERMAL PRN PRN PRN Reason: For IV start Stop: 02/05/18 02:09 Lidocaine HCl (Xylocaine 1% Inj) 10 ml INFILTRATN PRN PRN PRN Reason: For episiotomy repair Stop: 02/04/18 02:09 Mineral Oil (Muri-Lube Oil) 10 ml TOPICAL PRN PRN PRN Reason: PRN perineal massage Last Admin: 02/02/18 09:04 Dose: 10 ml Naloxone HCl (Narcan Inj) 0.1 mg IV.PUSH Q2M PRN PRN Reason: for opiate reversal Naloxone HCl (Narcan Inj) 0.1 mg IV.PUSH Q2M PRN PRN Reason: for opiate reversal Ondansetron HCl (Zofran Inj) 4 mg IV.PUSH Q6H PRN PRN Reason: NAUSEA OR VOMITING Ondansetron HCl (Zofran Odt) 4 mg PO Q6H PRN PRN Reason: NAUSEA OR VOMITING Oxycodone/Acetaminophen (Percocet 5/325 Mg) 1 tab PO Q4H PRN PRN Reason: PAIN SCALE 3 TO 5 Senna/Docusate Sodium (Jacquelyn-Colace) 1 tab PO BID [facility] Last Admin: 02/02/18 21:35 Dose: 1 tab Sennosides (Senokot) 17.2 mg PO Q12H PRN PRN Reason: Moderate Constipation Sodium Chloride (Ns Flush) 2 ml IV.FLUSH BID [facility] Last Admin: 02/02/18 21:35 Dose: Not Given Sodium Chloride (Ns Flush) 2 ml IV.FLUSH PRN PRN PRN Reason: FLUSH AFTER USING IV ACCESS Witch Rani/Glycerin (Tucks Pads) 1 applicatio RECTAL QID PRN PRN Reason: HEMORRHOIDS Zolpidem Tartrate (Ambien) 5 mg PO HS PRN PRN Reason: SLEEP Assessment and Plan - Diagnosis (1) Vaginal delivery Code(s): O80 - Encounter for full-term uncomplicated delivery Status: Acute - Plan 27 y/o female who is PPD#1 s/p -Continue routine care -Motrin and Percocet PRN for pain -Pericolase PRN for constipation -Encouraged OOB. Advised pelvic rest for 6 wks -Will need a follow-up appointment within 6 wks for post- check -Re: ctrl - would like [facility] Dr. Shine Discharge Planning: Plan to discharge home today if baby is cleared by pediatric team. If not, most likely, the following day.
[2018-02-03] MEDS: Acetaminophen 325 MG Tablet PO PRN (07:39)
[2018-02-03 08:50] VITALS: BP 114/61; PULSE 72; RESP 16
[2018-02-03 08:51] VITALS: TEMP 98
[2018-02-03] MEDS: Senna/Docusate Sodium 8.6/50 MG Tablet PO SCH (12:11)
== END 2018-02-03 17:00 | disposition home or self-care (01) ==
LOC: HOBED 01:23 → H2E 02:07 → H1EA 10:57
PROVIDERS: ADMIT Obstetrics & Gynecology; ATTEND Obstetrics & Gynecology